=== PATIENT | female | born 1960 | race Caucasian/White ===

== ENCOUNTER → 2017-10-25 | Outpatient (CLI) | payer BC ==
--- NOTE | 2017-10-25 16:18 | WOMENS IMAGING REPORT ---
EXAM DESCRIPTION: 3D SCREENING MAMMO BILAT COMPLETED DATE/TIME: 10/25/2017 3:13 pm REASON FOR STUDY: ROUTINE SCREENING; Z12.31 Z12.31 ENCNTR SCREEN MAMMOGRAM FOR MALIGNANT NEOPLASM O F EDUARDA COMPARISON: 2011 to 2015 TECHNIQUE: Standard craniocaudal and mediolateral oblique views of each breast recorded using digita l acquisition and breast tomosynthesis. LIMITATIONS: None. FINDINGS: No masses, calcifications or architectural distortion. No areas of suspicion. Read with the assistance of CAD. .[facility] - R2 Cenova Version 1.3 .[facility] Imaging - R2 Cenova Version 1.3 .[facility] Imaging - R2 Cenova Version 2.4 .[facility] R2 Cenova Version 2.4 .[facility] - R2 Booking Supervisor Version 9.2 IMPRESSION: NORMAL MAMMOGRAM. BIRADS 1. BREAST DENSITY: c. The breasts are heterogeneously dense, which may obscure small masses. BIRAD: 1 NEGATIVE RECOMMENDATION: ROUTINE SCREENING COMMENT: The patient has been notified of the results by letter per SA requirements. Additional no tification policies are in place for contacting patient with suspicious or incomplete findings. Quality ID #[id number]: The [employer] recommends an annual screening mammogram for women aged 40 years or over. This facility utilizes a reminder system to ensure that all patients receive reminder letters, and/or direct phone calls for appointments. This includes reminders for routine scr eening mammograms, diagnostic mammograms, or other Breast Imaging Interventions when appropriate. Th is patient will be placed in the appropriate reminder system. The [employer] (ACR) has developed recommendations for screening MRI of the breast s in certain patient populations, to be used in conjunction with mammography. Breast MRI surveillanc e may be appropriate for women with more than 20% lifetime risk of developing breast cancer as deter mined by genetic testing, significant family history of the disease, or history of mantle radiation f or Hodgkins Disease. ACR Practice Guidelines 2008. DBT Technology DBT is a type of tomographic mammography. With conventional mammography, overlapping breast tissue ma y make lesions difficult to detect, even with good compression. DBT uses an x-ray tube that rotates a round the breast, taking images at different angles. These images are then combined to create thin sl ices of the breast that the radiologist can view as a 3D reconstruction. The boarding pass unit can perform full-field digital mammograms (2D imaging); or DBT (3D imaging); or both, in a combination mode that quickly performs both the mammogram and the tomosynthesis scan while the breast is still compressed. PQRS 6045F: Fluoroscopic imaging is not utilized for breast tomosynthesis. TECHNICAL DOCUMENTATION: FINDING NUMBER: (1) ASSESSMENT: (1) JOB ID: [id number] [employer]- All Rights Reserved
== END ==
LOC: WI 15:00
PROVIDERS: ATTEND Obstetrics & Gynecology Gynecology
DX: Z12.31 Encounter for screening mammogram for malignant neoplasm of breast (principal)
CPT/HCPCS: 77063; G0202; 77067

== ENCOUNTER → 2018-10-27 | Outpatient (CLI) | payer BC | LOC: WI 10:15 | PROVIDERS: ATTEND Obstetrics & Gynecology Gynecology | DX: Z12.31 Encounter for screening mammogram for malignant neoplasm of breast (principal) | CPT/HCPCS: 77063; 77067 ==

== ENCOUNTER → 2019-10-29 | Outpatient (CLI) | payer BC ==
--- NOTE | 2019-10-29 10:02 | WOMENS IMAGING REPORT ---
EXAM DESCRIPTION: 3D SCREENING MAMMO BILAT COMPLETED DATE/TIME: 10/29/2019 9:27 am REASON FOR STUDY: Z12.31 SCREENING MAMMO Z12.31 ENCNTR SCREEN MAMMOGRAM FOR MALIGNANT NEOPLASM OF B RE COMPARISON: Multiple since 2009 EXAM PARAMETERS: Views: Standard craniocaudal and mediolateral oblique views of each breast recorded using digital acquisition and breast tomosynthesis. Read with the assistance of CAD. .[facility] - [employer] Corporate Counsel Version 9.2 LIMITATIONS: None. FINDINGS: No suspicious masses, suspicious calcifications or architectural distortion. No areas of c oncern. IMPRESSION: NEGATIVE MAMMOGRAM. BIRADS 1. BREAST DENSITY: c. The breasts are heterogeneously dense, which may obscure small masses. BIRAD: ASSESSMENT: 1 NEGATIVE RECOMMENDATION: ROUTINE SCREENING Please continue yearly bilateral screening mammography/tomosynthesis in October 2020 COMMENT: The patient has been notified of the results by letter per MQSA requirements. Additional no tification policies are in place for contacting patient with suspicious or incomplete findings. Quality ID #[id number]: The [employer] recommends an annual screening mammogram for women aged 40 years or over. This facility utilizes a reminder system to ensure that all patients receive reminder letters, and/or direct phone calls for appointments. This includes reminders for routine scr eening mammograms, diagnostic mammograms, or other Breast Imaging Interventions when appropriate. Th is patient will be placed in the appropriate reminder system. TECHNICAL DOCUMENTATION: FINDING NUMBER: (1) ASSESSMENT: (1) JOB ID: [id number] [employer]- All Rights Reserved Reading location - IP/workstation name: [email or web address]
== END ==
LOC: WI 09:05
PROVIDERS: ATTEND Obstetrics & Gynecology Gynecology
DX: Z12.31 Encounter for screening mammogram for malignant neoplasm of breast (principal)
CPT/HCPCS: 77063; 77067

== ENCOUNTER 2020-07-10 15:25 | Emergency (ER) | payer BC ==
[2020-07-10 15:49] VITALS: BP 125/62
[2020-07-10] MEDS ORDERED: LIDOCAINE 1% INJ-PF (10 MG/ML) 30 ML SDV INJ ONE (15:51)
--- NOTE | 2020-07-10 15:52 | ER Document Report ---
ED Foreign Body - General Chief Complaint: Foreign Body Stated Complaint: FISH HOOK IN RIGHT LEG Time Seen by Provider: 07/10/20 15:51 Primary Care Provider: MAVIS QUINTANA MD [Primary Care Provider] - Follow up in 3-5 days Mode of Arrival: Ambulatory Information source: Patient Notes: 60-year-old female presented to ED for complaint of fishhook in her right later al thigh just above the knee. She states she was out fishing with her when her her with a fishhook. She is alert oriented respirations regular nonlabored speaking in full sentences. She states her only past medical history is thyroid nodules. She has had a hysterectomy and tonsillectomy. Patient is alert oriented respirations regular nonlabored speaking in full sentences. She states she has not had a tetanus immunization in a while so she will be getting 1 before she is discharged. She will also be started on doxycycline. She has been given information concerning the precautions for sunscreen with doxycycline. REVIEW OF SYSTEMS: CONSTITUTIONAL : Denies fever, chills, or sweats. Denies recent illness. EENT: Denies eye, ear, throat, or mouth pain or symptoms. Denies nasal or sinus congestion. CARDIOVASCULAR: Denies chest pain. RESPIRATORY: Denies cough, cold, or chest congestion. Denies shortness of breath, difficulty breathing, or wheezing. GASTROINTESTINAL: Denies abdominal pain. Denies nausea, vomiting, or diarrhea. Denies constipation. GENITOURINARY: Denies difficulty urinating, painful urination, burning, frequency, or blood in urine. FEMALE GENITOURINARY: Denies vaginal bleeding, abnormal or irregular periods. MUSCULOSKELETAL: Denies neck or back pain. She was complaining of pain to the right lateral leg where her fishhook was impelled. SKIN: Moorcroft in the right lateral upper leg just above the knee HEMATOLOGIC : Denies easy bruising or bleeding. LYMPHATIC: Denies swollen, enlarged glands. NEUROLOGICAL: Denies altered mental status or loss of consciousness. Denies headache. Denies weakness or paralysis or loss of use of either side. Denies problems with gait or speech. Denies sensory or motor loss. PSYCHIATRIC: Denies anxiety or stress or depression. ALL OTHER SYSTEMS REVIEWED AND NEGATIVE. PHYSICAL EXAMINATION: GENERAL: Well-appearing, well-nourished and in no acute distress. HEAD: Atraumatic, normocephalic. EYES: Pupils equal round extraocular movements intact, conjunctiva are normal. ENT: Nares patent NECK: Normal range of motion LUNGS: No respiratory distress Musculoskeletal: Normal range of motion NEUROLOGICAL: Normal speech, normal gait. PSYCH: Normal mood, normal affect. SKIN: Moorcroft in the skin just above the knee to the lateral right thigh. TRAVEL OUTSIDE OF THE [place] IN LAST 30 DAYS: No - HPI Location of foreign body: Thigh Onset: Other - She states that it been in her leg about 2 hours when I took it out Onset/Duration: Persistent Quality of pain: Sharp Severity: Mild Pain Level: 1 Context: Injury - Moorcroft accidentally stuck in her right thigh just above the knee Associated symptoms: Recent injury Exacerbated by: Movement Relieved by: Denies Similar symptoms previously: No Recently seen / treated by doctor: No - Related Data Allergies/Adverse Reactions: No Known Allergies Allergy (Verified 07/10/20 15:47) Past Medical History - General Information source: Patient - Social History Smoking Status: Former Smoker Frequency of alcohol use: None Drug Abuse: None Lives with: Family Family History: Reviewed & Not Pertinent Patient has suicidal ideation: No Patient has homicidal ideation: No - Past Medical History Cardiac Medical History: Reports: None Pulmonary Medical History: Reports: None EENT Medical History: Reports: None Neurological Medical History: Reports: None Endocrine Medical History: Reports: Other - Thyroid nodules Renal/ Medical History: Reports: None Malignancy Medical History: Reports: None GI Medical History: Reports: None Musculoskeletal Medical History: Reports None Skin Medical History: Reports None Psychiatric Medical History: Reports: None Traumatic Medical History: Reports: None Infectious Medical History: Reports: None Past Surgical History: Reports: Hx Hysterectomy, Hx Thyroid Surgery, Hx Tonsillectomy - Immunizations Immunizations up to date: Yes Hx Diphtheria, Pertussis, Tetanus Vaccination: Yes - 07/10/2020 Physical Exam - Vital signs Vitals: Temp Pulse Resp BP Pulse Ox 99.0 F 86 16 125/62 100 07/10/20 15:47 07/10/20 15:47 07/10/20 15:47 07/10/20 15:47 07/10/20 15:47 Course - Re-evaluation Re-evalutation: 07/10/20 16:17 Skin was cleaned well with Shur-Clens 1% lidocaine 3 cc was injected into the site. The hook was forwarded to clip off the des and then reversed out of the wound. Area was irrigated with 60 cc of saline then dressed with a sterile dressing with bacitracin. Patient was treated with tetanus immunization and doxycycline. Patient was given instructions on Epson salt soaks, bacitracin, and doxycycline. Patient to follow-up with her primary care in the next 3 to 5 days. Patient verbalized understanding and agreement with treatment plan patient will be discharged after her shot time. - Vital Signs Vital signs: Temp Pulse Resp BP Pulse Ox 99.0 F 86 16 125/62 100 07/10/20 15:47 07/10/20 15:47 07/10/20 15:47 07/10/20 15:47 07/10/20 15:47 Discharge - Discharge Clinical Impression: fishhook removed from right leg Condition: Stable Disposition: HOME, SELF-CARE Additional Instructions: You were seen today for fishhook in the lateral aspect of your right leg just above the knee. The fishhook has been removed. SOAP CLEANSING: Gently wash the wound daily using a mild soap (like Ivory, Phisoderm, Neutrogena). Use warm water, rubbing gently until all debris, ooze, and crusting have been washed from the wound. Allow to dry briefly (about 10 minutes) after cleaning. Repeat this cleansing at least three times a day for the first two days and then once or twice a day. ANTIBIOTIC OINTMENT PROTECTION: Your wounds are such that dressing them is not practical or optional. After cleansing, you should apply a thin coating of antibiotic ointment (Bacitracin, not Neosporin) to the wounds at least three times daily. This lessens infection risk, and may decrease the amount of scarring. Use a q-tip or dull butter knife, not your finger, to apply this ointment. Any debris or ooze which builds up in the ointment should be gently rubbed off with a sterile gauze pad. Harder crusting may need to be gently scrubbed off with a clean wash cloth with soap and warm water, perhaps applying a warm, wet wash cloth to the wound for ten minutes first. Development of redness, severe itching, or blistering may mean allergy to the ointment. See the doctor. TETANUS IMMUNIZATION GIVEN: You have been given an immunization against tetanus. Please record this in your records. In general, a booster is needed only once every 10 years. The tetanus shot protects against tetanus or "lockjaw," which is a complication of certain wound infections (the tetanus shot cannot protect against the actual infection). The immunization site may become warm and red due to local reaction. If this occurs, apply warm compresses and take aspirin or ibuprofen to reduce inflammation and discomfort. Return for evaluation if the reaction becomes severe. Doxycycline Doxycycline (Vibramycin, Doryx) is an antibiotic of the tetracycline family. This type of drug is useful for infections of the respiratory tract and genital tract, and is sometimes used for intestinal infections. Unlike most tetracyclines, doxycycline can be taken with food. It is longer acting, and (usually) less prone to side effects than regular tetracycline. Tetracycline antibiotics can stain immature teeth and SHOULD NOT BE TAKEN BY CHILDREN, NURSING MOTHERS, OR WOMEN. Tetracyclines can make you more prone to sunburn. Abdominal cramping, nausea, and diarrhea are occasional side effects. Women may experience vaginal yeast infections. Call the doctor at once if you develop hives, itching, shortness of breath, or lightheadedness. Epsom Salt Soaks Soak the wound area in a container of warm epsom salt water. If you can't get the wound area into a bucket or morse, use a folded towel soaked in the epsom salt solution and apply to the area. Use clean hot tap water (about the temperature of a very warm bath), mixing in about one (1) teaspoon for every pint of water. Two gallon --> 16 teaspoons Epsom Salts One gallon --> 8 teaspoons Epsom Salts Two quarts --> 4 teaspoons Epsom Salts One quart --> 2 teaspoons Epsom Salts Soak the wound for about 20 minutes while gently moving it around in the water. Repeat this four (4) times a day. FOLLOW-UP CARE: If you have been referred to a physician for follow-up care, call the physicians office for an appointment as you were instructed or within the next two days. If you experience worsening or a significant change in your symptoms, notify the physician immediately or return to the Emergency Department at any time for re-evaluation. Prescriptions: Doxycycline Monohydrate 100 mg PO BID #20 capsule Referrals: MAVIS QUINTANA MD [Primary Care Provider] - Follow up in 3-5 days
[2020-07-10] MEDS ORDERED: DIPH/PERTUSS(ACELL)/TETANUS VAC/PF 0.5 ML SYR (>=10YO) IM ONE (16:06)
[2020-07-10] MEDS ORDERED: DOXYCYCLINE HYCLATE 100 MG TABLET PO ONE (16:06)
== END 2020-07-10 16:16 | disposition home or self-care (01) ==
LOC: ER 15:25
DX: S71.141A Puncture wound with foreign body, right thigh, initial encounter (principal); W45.8XXA Other foreign body or object entering through skin, initial encounter; Y93.19 Activity, other involving water and watercraft; Z23 Encounter for immunization; Z87.891 Personal history of nicotine dependence
CPT/HCPCS: 99283; 90471; 90715; J3490

== ENCOUNTER → 2020-11-02 | Outpatient (CLI) | payer BC ==
--- NOTE | 2020-11-02 12:02 | WOMENS IMAGING REPORT ---
EXAM DESCRIPTION: 3D SCREENING MAMMO BILAT IMAGES COMPLETED DATE/TIME: 11/02/2020 10:43 am REASON FOR STUDY: Z12.31 ENCOUNTER FOR SCREENING MAMMOGRAM FOR MALIGNANT NEOPLASM OF BREAST Z12.31 ENCNTR SCREEN MAMMOGRAM FOR MALIGNANT NEOPLASM OF EDUARDA COMPARISON: Priors dating back to 2011 EXAM PARAMETERS: Views: Standard craniocaudal and mediolateral oblique views of each breast recorded using digital acquisition and breast tomosynthesis. Read with the assistance of CAD. .[facility] - [employer] Version 9.2 LIMITATIONS: None. FINDINGS: No suspicious masses, suspicious calcifications or architectural distortion. No areas of c oncern. IMPRESSION: NEGATIVE MAMMOGRAM. BIRADS 1. BREAST DENSITY: c. The breasts are heterogeneously dense, which may obscure small masses. BIRAD: ASSESSMENT: 1 NEGATIVE RECOMMENDATION: ROUTINE SCREENING COMMENT: The patient has been notified of the results by letter per MQSA requirements. Additional no tification policies are in place for contacting patient with suspicious or incomplete findings. Quality ID #[id number]: The [employer] recommends an annual screening mammogram for women aged 40 years or over. This facility utilizes a reminder system to ensure that all patients receive reminder letters, and/or direct phone calls for appointments. This includes reminders for routine scr eening mammograms, diagnostic mammograms, or other Breast Imaging Interventions when appropriate. Th is patient will be placed in the appropriate reminder system. TECHNICAL DOCUMENTATION: FINDING NUMBER: (1) ASSESSMENT: (1) JOB ID: [id number] [employer]- All Rights Reserved Reading location - IP/workstation name: [email or web address]
== END ==
LOC: WI 10:26
PROVIDERS: ATTEND Obstetrics & Gynecology Gynecology
DX: Z12.31 Encounter for screening mammogram for malignant neoplasm of breast (principal)
CPT/HCPCS: 77063; 77067